=== PATIENT | female | born 1975 | race American Indian/Alaskan Native ===

== ENCOUNTER 2017-08-07 11:22 | Emergency (ER) | payer MEDICAID, OTHER ==
[2017-08-07 11:22] VITALS: BMI 24.2
--- NOTE | 2017-08-07 11:24 | ED PDOC ---
Arrival/HPI - General Time Seen by Provider: 08/07/17 11:23 Historian: Patient - History of Present Illness Narrative History of Present Illness (Text): 08/07/17 11:23 41 year old female, pmh including ovarian cyst and migraine headache, nkda, complaining of rt. sided headache started yesterday. Aching and throbbing pain , nonradiating, aggravated by bright light, no neck stiffness, no rash, no night sweat, no coughing or URI symptoms, not the worst headache or her life, no change in vision, no other medical or psychological complaints. Past Medical History - Provider Review Nursing Documentation Reviewed: Yes - Psychiatric Hx Depression: No Hx Emotional Abuse: No Hx Physical Abuse: No Hx Substance Use: No - Surgical History Other/Comment: fibroids - Suicidal Assessment Feels Threatened In Home Enviroment: No Family/Social History - Physician Review Nursing Documentation Reviewed: Yes Family/Social History: Unknown Family HX Smoking Status: Current Some Days Smoker Hx Alcohol Use: Yes Hx Substance Use: No Hx Substance Use Treatment: No Allergies/Home Meds Allergies/Adverse Reactions: Allergies No Known Allergies Allergy (Verified 01/06/15 06:53) Review of Systems - Review of Systems Constitutional: absent: Fatigue, Fevers Eyes: absent: Vision Changes ENT: absent: Hearing Changes Respiratory: absent: SOB, Cough Cardiovascular: absent: Chest Pain Gastrointestinal: absent: Abdominal Pain, Nausea, Vomiting Skin: absent: Rash, Pruritis Neurological: Headache. absent: Dizziness, Focal Weakness, Gait Changes, Speech Changes Endocrine: absent: Diaphoresis Psychiatric: absent: Anxiety, Depression, Suicidal Ideation Physical Exam Vital Signs Reviewed: Yes Vital Signs Temp Pulse Resp BP Pulse Ox 08/07/17 12:57 79 18 138/86 100 08/07/17 11:30 97.5 F L 84 16 145/91 H 100 Temperature: Afebrile Blood Pressure: Normal Pulse: Regular Respiratory Rate: Normal Appearance: Positive for: Well-Appearing, Non-Toxic Pain Distress: Severe Mental Status: Positive for: Alert and Oriented X 3 - Systems Exam Head: Present: Atraumatic, Normocephalic, Other (no temporal artery tenderness, no jaw claudication.) Pupils: Present: PERRL Extroacular Muscles: Present: EOMI Conjunctiva: Present: Normal Ears: Present: NORMAL TM, Normal Canal. No: Erythema Mouth: Present: Moist Mucous Membranes Neck: Present: Normal Range of Motion, Trachea Midline. No: Meningeal Signs, MIDLINE TENDERNESS, Paraspinal Tenderness, Lymphadenopathy Respiratory/Chest: Present: Clear to Auscultation, Good Air Exchange. No: Respiratory Distress, Accessory Muscle Use Cardiovascular: Present: Regular Rate and Rhythm, Normal S1, S2. No: Murmurs Abdomen: Present: Normal Bowel Sounds. No: Tenderness, Distention, Peritoneal Signs Back: Present: Normal Inspection Upper Extremity: Present: Normal Inspection. No: Cyanosis, Edema Lower Extremity: Present: Normal Inspection. No: Edema Neurological: Present: GCS=15, CN II-XII Intact, Speech Normal, Motor Func Grossly Intact, Gait Normal, Memory Normal, Other (no focal neurological deficits. ) Skin: Present: Warm, Dry, Normal Color. No: Rashes Psychiatric: Present: Alert, Oriented x 3, Normal Insight, Normal Concentration Medical Decision Making ED Course and Treatment: 08/07/17 11:38 -labs -IVF/reglan/benadry/toradol -observe and reassess 08/07/17 13:07 -Urine hcg is negative. -Labs are non-significant, vitally table, no focal neurological deficits, -symptoms resolved, feeling completely relief, will discharge home. -Discharge home with tylenol, follow up with your own pmd and neurologist within 2 days, return to the ER for any new or worsening signs or symptoms. - Lab Interpretations Lab Results: 08/07/17 11:50 08/07/17 11:50 Lab Results 08/07/17 11:50: WBC 4.5 D, RBC 3.95, Hgb 12.6, Hct 37.6, MCV 95.2, MCH 31.9, MCHC 33.5, RDW 12.5, Plt Count 208, MPV 11.5 H, Gran % 53.2, Lymph % (Auto) 39.0 H, Mcminn % (Auto) 6.9 H, Eos % (Auto) 0.7 L, Baso % (Auto) 0.2, Gran # 2.40 , Lymph # (Auto) 1.8, Mcminn # (Auto) 0.3, Eos # (Auto) 0.0, Baso # (Auto) 0.01 08/07/17 11:50: Sodium 141, Potassium 3.9, Chloride 106, Carbon Dioxide 26, Anion Gap 12, BUN 14, Creatinine 0.7, Est GFR ( Amer) > 60, Est GFR (Non- Af Amer) > 60, Random Glucose 86, Calcium 9.5, Magnesium 1.9, Total Bilirubin 0.6, AST 20, ALT 23, Alkaline Phosphatase 48, Total Protein 7.0, Albumin 3.9, Globulin 3.1, Albumin/Globulin Ratio 1.3 - Medication Orders Current Medication Orders: Discontinued Medications Diphenhydramine HCl (Benadryl) 50 mg IVP STAT STA Stop: 08/07/17 11:35 Last Admin: 08/07/17 12:15 Dose: 50 mg IVP Administration Document 08/07/17 12:15 HI (Rec: 08/07/17 12:15 [place] [id number]) Charges for Administration # of IVP Administrations 1 Sodium Chloride (Sodium Chloride 0.9%) 1,000 mls @ 999 mls/hr IV .Q1H1M STA Stop: 08/07/17 12:34 Last Admin: 08/07/17 12:13 Dose: 999 mls/hr eMAR Start Stop Document 08/07/17 12:13 HI (Rec: 08/07/17 12:14 [id number] Intravenous Solution Start Date 08/07/17 Start Time 12:14 Ketorolac Tromethamine (Toradol) 30 mg IVP STAT STA Stop: 08/07/17 11:36 Last Admin: 08/07/17 12:14 Dose: 30 mg MAR Pain Assessment Document 08/07/17 12:14 HI (Rec: 08/07/17 12:14 [place] [id number]) Pain Reassessment Is this a pain reassessment? No IVP Administration Document 08/07/17 12:14 HI (Rec: 08/07/17 12:14 [place] [id number]) Charges for Administration # of IVP Administrations 1 Metoclopramide HCl (Reglan) 10 mg IVP STAT STA Stop: 08/07/17 11:35 Last Admin: 08/07/17 12:14 Dose: 10 mg IVP Administration Document 08/07/17 12:14 HI (Rec: 08/07/17 12:14 [place] [id number]) Charges for Administration # of IVP Administrations 1 - PA / [employer] / Resident Statement MD/DO has reviewed & agrees with the documentation as recorded. Disposition/Present on Arrival - Present on Arrival Any Indicators Present on Arrival: No History of DVT/PE: No History of Uncontrolled Diabetes: No Urinary Catheter: No History of Decub. Ulcer: No History Surgical Site Infection Following: None - Disposition Have Diagnosis and Disposition been Completed?: Yes Diagnosis: Headache Disposition: HOME/ ROUTINE Disposition Time: 12:04 Patient Plan: Discharge Condition: IMPROVED Additional Instructions: -Discharge home with tylenol, follow up with your own pmd and neurologist within 2 days, return to the ER for any new or worsening signs or symptoms. Prescriptions: Acetaminophen [Tylenol 325mg tab] 2 tab PO QID PRN #35 tab PRN Reason: Other Referrals: Toni Carcamo MD [Staff Provider] - Follow up with primary Forms: WORK NOTE
[2017-08-07 11:30] VITALS: TEMP 97.5; O2SAT 100
[2017-08-07] MEDS ORDERED: DiphenhydrAMINE 50 mg/ml Inj IVP STA (11:34)
[2017-08-07] MEDS ORDERED: Sodium Chloride 0.9% 1,000 ML IV STA (11:34)
[2017-08-07 12:15] LABS: BASO # 0.01 K/mm3 (0.0-2.0); BASO % 0.2 % (0.0-3.0); EOS % 0.7 % (1.5-5.0); GRAN # 2.4 (1.4-6.5); GRAN % 53.2 % (50.0-68.0); HEMOGLOBIN 12.6 g/dL (12.0-16.0); LYMPH # 1.8 (1.2-3.4); MEAN CELL VOLUME 95.2 fl (80.0-105.0); MEAN CORPUSCULAR HEMOGLOBIN 31.9 pg (25.0-35.0); MEAN CORPUSCULAR HGB CONC 33.5 g/dl (31.0-37.0); MEAN PLATELET VOLUME 11.5 fl (7.0-11.0); MONO # 0.3 (0.1-0.6); MONO % 6.9 % (1.0-6.0); RBC 3.95 10^6/uL (3.5-6.1); RED CELL DISTRIBUTION WIDTH 12.5 % (11.5-14.5); WHITE BLOOD COUNT 4.5 10^3/ul (4.5-11.0)
[2017-08-07 12:36] LABS: ALB/GLOB RATIO 1.3 (1.1-1.8); ALBUMIN 3.9 g/dL (3.0-4.8); ALT/SGPT 23 U/L (7-56); AST/SGOT 20 U/L (14-36); BLOOD UREA NITROGEN 14 mg/dL (7-21); CALCIUM 9.5 mg/dL (8.4-10.5); GFR AFRICAN-AMERICAN > 60; GFR NON-AFRICAN AMERICAN > 60; MAGNESIUM 1.9 mg/dL (1.7-2.2)
[2017-08-07 12:57] VITALS: BP 138/86; PULSE 79; RESP 18
== END 2017-08-07 13:55 | disposition home or self-care (01) ==
LOC: ED 11:22
DX: R51 Headache (principal)
CPT/HCPCS: 80053; 83735; 85025; 96374; 96375; 99285; J1200; J1885; J2765; J7040